=== PATIENT | female | born 1990 | race Caucasian/White ===

== ENCOUNTER 2017-04-23 15:54 | Emergency (ER) | payer OTHER ==
[~2017-04-23] VITALS: Ht 165.1 cm; Wt 62.3 kg
[2017-04-23 16:03] VITALS: BP 107/59; PULSE 90; TEMP 99
== END 2017-04-23 18:48 | disposition home or self-care (01) ==
LOC: COL.ER 15:54
DX: N89.8 Other specified noninflammatory disorders of vagina (principal)